=== PATIENT | female | born 1940 | race Caucasian/White ===

== ENCOUNTER 2018-03-04 12:25 | Day surgery (SDC) | payer OTHER ==
[~2018-03-04 12:25] MED LIST: ALBU1AER INH; IMIT25TA PO; Z.0.OXYGEN INH
[2018-03-04 13:21] VITALS: BP 135/83; PULSE 90; RESP 16; TEMP 97.8; O2SAT 100
[2018-03-04 13:50] VITALS: BP 128/76; PULSE 94; RESP 16; TEMP 97.8; O2SAT 96
[2018-03-04] MEDS ORDERED: LIDOCAINE HCL 1% 20 ML VIAL ONE (14:17)
--- NOTE | 2018-03-04 16:32 | RADRPT ---
EXAM DATE/TIME: 03/04/2018 13:08 [place] COMPARISON: EXTERNAL COMPARISON: US LEG LEFT VENOUS DOPPLER, May 01, 2015, 18:06[facility]. MR Knee; right, Feb 20 2018 INDICATIONS : Glynn's cyst right knee. MEDICAL HISTORY : Arthritis. COPD. Asthma. Emphysema. SURGICAL HISTORY : Ankle and foot surgery. Appendectomy. Hysterectomy. ENCOUNTER: Initial ACUITY: 1 week PAIN SCORE: 2/10 LOCATION: Right knee. FLUID: Total volume of 20 cc of clear, yellow fluid was removed. Fluid was discarded. Post procedure scanning reveals no hematoma or other complication. TECHNIQUE: 1. Ultrasound guidance for needle aspiration. 2. Aspiration. The risks, benefits and alternatives to the procedure were explained and verbal and written consent w as obtained. The site was prepped in sterile fashion. Full sterile technique was used, including ca p, mask, sterile gloves and gown and a large sterile sheet. Hand hygiene and 2% chlorhexidine and/or betadine/alcohol prep was utilized per protocol for cutaneous antisepsis. The skin and subcutaneous tissues were infiltrated with local anesthetic solution. Sterile gel and sterile probe cover were u tilized for ultrasound guidance. With the patient on the ultrasound table, ultrasound imaging was used to select the most appropriate approach for aspiration. A dermatotomy was made with an 11 blade scalpel. A catheter was introduced into the cavity and fluid was collected. CONCLUSION: Uncomplicated ultrasound guided aspiration. Abran Cochran MD on March 04, 2018 at 16:28 Board Certified Radiologist. This report was verified electronically.
== END 2018-03-04 14:00 | disposition home or self-care (01) ==
LOC: HRAD 12:25 → HRIP 12:33 → HRAD 14:00
PROVIDERS: ATTEND Orthopaedic Surgery Sports Medicine
DX: M71.21 Synovial cyst of popliteal space [Baker], right knee (principal); J44.9 Chronic obstructive pulmonary disease, unspecified; M19.90 Unspecified osteoarthritis, unspecified site
CPT/HCPCS: 10160; 76942